=== PATIENT | male | born 1990 | race Caucasian/White ===

== ENCOUNTER 2022-10-30 22:07 | Emergency (ER) | payer MEDICAID ==
[~2022-10-30] VITALS: Ht 177.8 cm; Wt 92.0 kg
[2022-10-30 23:16] VITALS: BP 128/77
== END 2022-10-30 23:17 | disposition home or self-care (01) ==
LOC: ER 22:07
DX: R56.9 Unspecified convulsions (principal)
CPT/HCPCS: 82962; 99281

== ENCOUNTER 2022-12-21 10:05 | Emergency (ER) | payer MEDICAID ==
[~2022-12-21] VITALS: Ht 180.3 cm; Wt 65.0 kg
[2022-12-21 10:10] VITALS: BP 115/74
[2022-12-21] MEDS ORDERED: SODIUM CHLORIDE 0.9% 1,000 ML IV ONE (11:00)
== END 2022-12-21 12:01 | disposition left against medical advice (07) ==
LOC: ER 10:12
DX: R56.9 Unspecified convulsions (principal)
CPT/HCPCS: 99283; J7030